=== PATIENT | male | born 1960 | race Caucasian/White ===

== ENCOUNTER 2016-12-04 13:25 | Emergency (ER) | payer OTHER ==
--- NOTE | 2016-12-04 13:45 | ED GI/GU/ABDOMINAL COMPLAINT ---
History of Present Illness General Chief Complaint: ETOH/Drug Related Complaint Stated Complaint: BIBA FOR ?OVER MEDICATION/OVERDOSE Source: patient, old records, EMS Exam Limitations: clinical condition, poor historian Vital Signs & Intake/Output Vital Signs & Intake/Output Vital Signs Date Time Temp Pulse Resp B/P B/P Pulse O2 O2 Flow FiO2 Mean Ox Delivery Rate 12/04 2000 97.1 76 16 134/80 98 Room Air Allergies Coded Allergies: No Known Allergies (12/04/16) Triage Note: PT BIBA FROM HOME AFTER WELLNESS CHECK. FOUND PT TO BE VERY TIRED IN ROOM. PT KEEPS FALLING ASLEEP DURING ASSESSMENT. PT DENIES TAKING ANYTHING. HAS A HX OF METHADONE USE. NSR ON CM. PT ALERT TO VERBAL STIMULI. MANUELA TAYLOR TO SARIAH. Triage Nurses Notes Reviewed? yes Onset: Abrupt Duration: day(s): (1), constant Timing: recent history Quality/Severity: mild Severity Numbers: 1 No Modifying Factors: none Associated Symptoms: DENIES HPI: The 56-year-old male brought in by ambulance for evaluation after he was found by his landlord to be lethargic. The history is limited secondary to patient condition at this time. He offers no complaints. Patient was found to be falling asleep frequently during her wellness check earlier today. He has a history of methadone use however denies any other drug use alcohol use. He has no chest pain abdominal pain or modifying factors or associated symptoms otherwise (LIZANDRO THOMPSON) Past History Travel History Traveled to [place] past 21 day No Medical History Any Pertinent Medical History? see below for history Gastrointestinal: liver disease Blood Disorders: thrombocytopenia Surgical History Surgical History: non-contributory Psychosocial History What is your primary language Albanian Tobacco Use: Cognitive Impairment Family History Hx Contributory? No (LIZANDRO THOMPSON) Review of Systems Review of Systems Constitutional: Reports: see HPI. All Other Systems: Reviewed and Negative Comments Review of systems: Limited secondary to patient condition (LIZANDRO THOMPSON) Physical Exam Physical Exam General Appearance: no apparent distress, lethargic Gastrointestinal: soft, non-tender Comments: Lethargic male arousable to verbal stimuli in no acute distress HEENT: Normal EENT exam; pupils are constricted responsive to light EOMI, HEAD is atraumatic. moist mucous membranes. Neck: Supple, normal range of motion Back: Nontender, no CVA tenderness. Full range of motion Cardiovascular: Regular rate and rhythms no murmurs rubs Respiratory: Chest nontender.There were no bony deformities, no asymmetry. No respiratory distress. Patient speaking in full complete sentences. Breath sounds clear to auscultation bilaterally: NO W/R/R Abdomen: Soft, nontender nondistended Extremity: No edema, full range of motion of extremities, 5 out of 5 strength noted to bilateral upper and lower extremities Neuro: Alert oriented x3, motor sensory normal,There were no obvious focal neurologic abnormalities. Skin: No appreciable rash on exposed skin, skin is warm and dry. Psych: Mood and affect is normal, memory and judgment is normal. Core Measures ACS in differential dx? No Severe Sepsis Present: No Septic Shock Present: No (LIZANDRO THOMPSON) Progress Differential Diagnosis: INTOXICATION ELECTROLYTE ABNORMALITY DEHYDRATION HYPOGLYCEMIA Plan of Care: Orders Procedure Date/time Status Restraint- Discontinue 12/04 2108 Active Laboratory Tests 12/04/16 2014: Urine Opiates Screen < 100.00, Methadone Screen > 735 H, Barbiturate Screen < 60, Ur Phencyclidine Scrn < 6.00, Amphetamines Screen < 100, U Benzodiazepines Scrn > 800 H, Urine Cocaine Screen < 50, Urine Cannabis Screen < 5.00 Labs ordered old records reviewed case discussed with Dr. Ash 12/04/2016 2:41:00 PM patient is more awake responsive PT states he has a history of thrombocytopenia secondary to chronic liver disease. Patient is attempting to elope when he fell on the room he is a risk to himself. Case was discussed with Dr. Ash evaluate the patient and agreed with plan patient was placed in restraints for his safety and staff safety 2109 patient is alert awake and oriented 3 he is able toward around the emergency room a steady gait vital signs are within normal limits discussed with him plan of care he is awake alert and responsive. I again discussed with the patient all his lab results and need for close follow-up regarding his thrombocytopenia he feels comfortable with discharge at this time his is coming to pick him up (LIZANDRO THOMPSON) Initial ED EKG: none (LIZANDRO THOMPSON) Departure Departure Time of Disposition: 2110 Disposition: HOME OR SELF CARE Condition: Stable Clinical Impression Primary Impression: Thrombocytopenia Secondary Impressions: Benzodiazepine abuse Departure Forms: Customer Survey General Discharge Information (LIZANDRO THOMPSON) PA/FLIGHT PURSER Co-Sign Statement Statement: ED Attending supervision documentation- [] I saw and evaluated the patient. I have also reviewed all the pertinent lab results and diagnostic results. I agree with the findings and the plan of care as documented in the PA's/FLIGHT PURSER's documentation. [X] I have reviewed the ED Record and agree with the PA's/FLIGHT PURSER's documentation. [] Additions or exceptions (if any) to the PAs/FLIGHT PURSER's note and plan are summarized below: [] (MILAN MATHEWS,RICCI) Disposition: HOME OR SELF CARE Condition: Stable Clinical Impression Primary Impression: Thrombocytopenia Secondary Impressions: Benzodiazepine abuse Departure Forms: Customer Survey General Discharge Information
[2016-12-04 14:17] LABS: ABSOLUTE BASOPHIL COUNT 0 /CUMM (0.0-0.2); ABSOLUTE EOSINOPHIL COUNT 0.1 /CUMM (0.0-0.7); ABSOLUTE LYMPH COUNT 0.9 /CUMM (1.2-3.4); ABSOLUTE MONOCYTE COUNT 0.3 /CUMM (0.10-0.60); MEAN CORPUSCULAR HGB 28.6 PG (27.0-31.0)
[2016-12-04 14:19] LABS: ABSOLUTE GRANULOCYTE CT 3.1 /CUMM (1.4-6.5); BASOPHIL % 0 % (0.0-2.0); EOSINOPHIL % 2.3 % (0-5); GRANULOCYTE % 69.4 % (42.2-75.2); HEMATOCRIT 35.5 % (42-52); MEAN CORPUSCULAR HGB CONC 33.7 G/DL (33.0-37.0); MEAN CORPUSCULAR VOLUME 84.8 FL (80.0-94.0); MEAN PLATELET VOLUME 10.5 FL (7.4-10.4); RBC DISTRIBUTION WIDTH 18.2 % (11.5-14.5); RED BLOOD CELL CT 4.18 /CUMM (4.70-6.10); WHITE BLOOD CELL COUNT 4.4 /CUMM (4.8-10.8)
[2016-12-04 14:36] LABS: PLATELET COUNT 49 /CUMM (130-400)
[2016-12-04 20:01] VITALS: BP 134/80
== END 2016-12-04 21:24 ==
LOC: ERH 13:25
PROVIDERS: Physician Assistant Medical
DX: D69.6 Thrombocytopenia, unspecified (principal); F13.10 Sedative, hypnotic or anxiolytic abuse, uncomplicated
CPT/HCPCS: 80307; G0480; J2310

== ENCOUNTER 2016-12-11 13:59 | Emergency (ER) | payer OTHER ==
[~2016-12-11] VITALS: Ht 175.3 cm; Wt 86.2 kg
--- NOTE | 2016-12-11 14:22 | ED GENERAL ADULT ---
History of Present Illness General Chief Complaint: ETOH/Drug Related Complaint Stated Complaint: BIBA FOR ?OD/UNRESPONSIVE Source: patient Exam Limitations: no limitations Vital Signs & Intake/Output Vital Signs & Intake/Output Vital Signs Date Time Temp Pulse Resp B/P B/P Pulse O2 O2 Flow FiO2 Mean Ox Delivery Rate 12/12 0613 80 20 126/71 96 Room Air 12/11 2204 97.1 71 20 125/80 96 Room Air 12/11 1921 73 20 113/83 98 Room Air 12/11 1727 80 20 125/85 98 Room Air 12/11 1406 100/70 12/11 1402 96.0 72 20 96 Room Air ED Intake and Output 12/12 0000 12/11 1200 Intake Total Output Total Balance Patient 190 lb Weight Weight Estimated Measurement Method Allergies Coded Allergies: No Known Allergies (12/04/16) Triage Note: PT BIBA FROM LOBBY OF HIS APARTMENT COMPLEX FOR AMS. PT WAS WANDERING AND CONFUSED. 911 ARRIVED, PT WAS RECLUCTANT TO COME TO ED FOR EVAL. PT ARRIVES, ALERT/LETHARGIC. PT NOTED WITH GREEN/WHITE POWDER/LIQUID ON TONGUE AND TEETH. PT ADMITS TO INGESTING DISSOLVEABLE DRUGS, WILL NOT SPECIFY. SECURITY AT BEDSIDE TO WAND. PT AWAKENS TO LOUD VERBAL STIMULI AND THEN FALLS BACK TO SLEEP. PLACED ON MONITOR. CHANGED INTO BLUE SCRUBS. AWAITING PROVIDER EVAL. VSS. Triage Nurses Notes Reviewed? yes Onset: Just prior to arrival Duration: constant Timing: recent history Injury Environment: home Severity: moderate HPI: Patient is a 56-year-old male with history of polysubstance abuse and thrombocytopenia presenting to the emergency Department chief complaint of confusion and ingestion of unknown substance. Per EMS patient was found wandering in the lobby of his apartment complex. Patient reports that he ingested some pills, will not report exactly what he took. Patient is confused, unable to report HPI. According to medical history patient has been seen and evaluated for similar symptoms in the past at this facility. Patient denying any pain. No shortness of breath. (CONOR ROY,ALEXEY) Past History Travel History Traveled to [place] past 21 day No Medical History Any Pertinent Medical History? see below for history Gastrointestinal: liver disease Blood Disorders: thrombocytopenia Surgical History Surgical History: non-contributory Psychosocial History What is your primary language Maltese Tobacco Use: UN ETOH Use: 6 6 Family History Hx Contributory? No (ALEXEY BRISENO) Review of Systems Review of Systems Constitutional: Reports: malaise. Comments Review of systems: See HPI, All other systems negative. Constitutional, no chills fever or weight loss HEENT: No visual changes no sore throat no congestion Cardiovascular: No chest pain ,palpitation , orthopnea or ankle swelling Skin, no jaundice no rashes Respiratory: No dyspnea cough sputum or hemoptysis GI: No nausea no vomiting : No dysuria No hematuria Muscle skeletal: no back pain, no neck pain, Neurologic: No numbness no confusion Psych: No stress anxiety or depression,. Heme/endocrine: No bruising no bleeding no polyuria or polydipsia Immunology: No splenectomy or history of AIDS (ALEXEY BRISENO) Physical Exam Physical Exam General Appearance: lethargic Comments: Well-developed well-nourished person in no acute distress HEENT: extraocular motion intact, no nystagmus. Pupils equally round and reactive to light and accommodation. Pupils approximately 4 mm bilaterally. Nose is atraumatic. External auditory canal and Tympanic membranes clear. Pharynx normal. No swelling or edema. Dry crusted white powder noted in mouth. Neck: Normal inspection Back: Nontender Cardiovascular: Regular rate and rhythms no murmurs rubs or gallops, normal JVP Respiratory: Chest nontender. No respiratory distress.slight wheezing to auscultation bilaterally at bases. Abdomen: Soft, nontender nondistended, no appreciable organomegaly. Normal bowel sounds. No ascites Extremity: No edema, Neuro: Lethargic, arousable to verbal stimuli and tactile stimuli. Oriented to person. Falls asleep, unable to follow cranial nerve exam. Skin: Dry scabbing lesions noted over the abdomen, upper extremities and lower extremity. No surrounding erythema. Psych intoxicated Core Measures ACS in differential dx? No CVA/TIA Diagnosis: No Severe Sepsis Present: No Septic Shock Present: No (ALEXEY BRISENO) Progress Differential Diagnoses I considered the following diagnoses in my evaluation of the patient: Polysubstance abuse, overdose, benzo overdose, EtOH abuse, depression, aspiration pneumonia Plan of Care: Orders Procedure Date/time Status Add-on Test (ER Only) 12/11 1855 Active Add-on Test (ER Only) 12/11 1617 Active ACETOMINOPHEN 12/11 1532 Complete SALICYLATE 12/11 1532 Complete ETHANOL 12/11 1532 Complete EKG 12/11 1432 Active URINE DRUG SCREEN FOR ER ONLY 12/11 141 Complete URINALYSIS 12/11 141 Complete COMPREHENSIVE METABOLIC PANEL 12/11 141 Complete CBC WITHOUT DIFFERENTIAL 12/11 141 Complete Laboratory Tests 12/11/16 1802: Urine Opiates Screen < 100.00, Methadone Screen > 735 H, Barbiturate Screen < 60, Ur Phencyclidine Scrn < 6.00, Amphetamines Screen < 100, U Benzodiazepines Scrn > 800 H, Urine Cocaine Screen < 50, Urine Cannabis Screen < 5.00, Urine Color YEL, Urine Clarity CLEAR, Urine pH 7.0, Ur Specific [place] 1.015, Urine Protein NEG, Urine Ketones TRACE H, Urine Nitrite NEG, Urine Bilirubin NEG, Urine Urobilinogen 4.0 H, Ur Leukocyte Esterase NEG, Ur Microscopic EXAM NOT REQUIRED, Urine Hemoglobin NEG, Urine Glucose NEG 12/11/16 1532: Anion Gap 5, Estimated GFR > 60, BUN/Creatinine Ratio 22.9, Glucose 63 L, Calcium 8.4, Total Bilirubin 2.3 H, AST 43, ALT 42, Alkaline Phosphatase 80, Total Protein 6.1 L, Albumin 2.8 L, Globulin 3.3, Albumin/Globulin Ratio 0.8 L, Salicylates < 1.0, Acetaminophen < 10.0 L, Serum Alcohol < 10.0 12/11/16 1440: CBC w Diff NO MAN DIFF REQ, RBC 4.32 L, MCV 85.3, MCH 28.5, RDW 18.7 H, MPV 11.2 H, Gran % 67.6, Lymphocytes % 22.9, Monocytes % 6.8, Eosinophils % 1.9, Basophils % 0.8, Absolute Granulocytes 3.0, Absolute Lymphocytes 1.0 L, Absolute Monocytes 0.3, Absolute Eosinophils 0.1, Absolute Basophils 0, PUBS MCHC 33.4 Diagnostic Imaging: Viewed by Me: Radiology Read. Discussed w/RAD: Radiology Read. Initial ED EKG: SINUS RHYTHM 70 BPM, BORDERLINE PROLONGED qt INTERVAL Hand-Off Endorsed To: ISAIAS LOPEZ Endorsed Time: 1999 Pending: other Comments: ON ARRIVAL PATIENT APPEARS INTOXICATED, INCOHERENT, AROUSABLE TO VERBAL AND TACTILE STIMULI BUT THEN FALLS BACK ASLEEP. wE WILL CONTINUE MONITOR THE PATIENT on the electrical journeyman. Patient did have Xanax tabs in his pocket, appears to be similar colored to what was crushed in his mouth. Patient currently denying any suicidal or homicidal ideation. 12/11/2016 5:54:41 PMPatient will be continued to be monitored until clinically sober. Patient signed out to MANUELA Chowdary. (ALEXEY BRISENO) Differential Diagnoses I considered the following diagnoses in my evaluation of the patient: (EDGARD MATHEWS,PEDRO Rodríguez) Comments: Patient is still clinically intoxicated and is signout to Dr. King pending reevaluation. When patient becomes clinically sober and alert and oriented he can go home. (ISAIAS LOPEZ) Departure Departure Disposition: HOME OR SELF CARE Condition: Stable Clinical Impression Primary Impression: Polysubstance abuse Referrals: UNKNOWN (PCP/Family) Additional Instructions: Follow-up with your primary care physician. Takes only prescribed medications as prescribed. Return for worsening symptoms or concerns. Departure Forms: Customer Survey General Discharge Information (ALEXEY BRISENO) Departure Comments 12/12/16, 5:29am.... pt resting comfortably, easily aroused. Pt denies Si/HI/ Hallucinations. He does not wish to speak to crises team, "I speak to a counselor all the time." He is safe and stable for discharge. PA/INTERNET DESIGNER Co-Sign Statement Statement: ED Attending supervision documentation- [x] I saw and evaluated the patient. I have also reviewed all the pertinent lab results and diagnostic results. I agree with the findings and the plan of care as documented in the PA's/INTERNET DESIGNER's documentation. 12/12/16, 5:46am... pt denies SI/HI/Hallucinations. He does not wish to speak to crises and has follow up with his own counselor. He is safe and stable for discharge. [] I have reviewed the ED Record and agree with the PA's/INTERNET DESIGNER's documentation. [] Additions or exceptions (if any) to the PAs/INTERNET DESIGNER's note and plan are summarized below: [] (EDGARD MATHEWS,PEDRO Rodríguez) Critical Care Note Critical Care Note Critical Care Time: non-applicable (ALEXEY BRISENO)
[2016-12-11 14:50] LABS: ABSOLUTE BASOPHIL COUNT 0 /CUMM (0.0-0.2); ABSOLUTE EOSINOPHIL COUNT 0.1 /CUMM (0.0-0.7); ABSOLUTE MONOCYTE COUNT 0.3 /CUMM (0.10-0.60); BASOPHIL % 0.8 % (0.0-2.0); EOSINOPHIL % 1.9 % (0-5); GRANULOCYTE % 67.6 % (42.2-75.2); HEMATOCRIT 36.8 % (42-52); MEAN CORPUSCULAR HGB 28.5 PG (27.0-31.0); MEAN CORPUSCULAR HGB CONC 33.4 G/DL (33.0-37.0); MEAN CORPUSCULAR VOLUME 85.3 FL (80.0-94.0); MEAN PLATELET VOLUME 11.2 FL (7.4-10.4); RBC DISTRIBUTION WIDTH 18.7 % (11.5-14.5); RED BLOOD CELL CT 4.32 /CUMM (4.70-6.10); WHITE BLOOD CELL COUNT 4.5 /CUMM (4.8-10.8)
[2016-12-11 15:12] LABS: PLATELET COUNT 58 /CUMM (130-400)
--- NOTE | 2016-12-11 19:50 | RADIOLOGY REPORT ---
EXAMINATION: XR PORTABLE CHEST CLINICAL INFORMATION: Drug overdose. Rule out aspiration. COMPARISON: None TECHNIQUE: Portable frontal view of the chest was obtained. FINDINGS: The cardiomediastinal silhouette is within normal limits for technique. The lungs are normally and symmetrically expanded. No focal consolidation, changes of congestion or pleural effusions. No pneumothorax. No acute osseous abnormality. IMPRESSION: No acute pulmonary process. The lungs essentially appear clear.
[2016-12-12 06:13] VITALS: BP 126/71
== END 2016-12-12 06:14 ==
LOC: ERH 13:59
PROVIDERS: Physician Assistant
DX: F19.10 Other psychoactive substance abuse, uncomplicated (principal)
CPT/HCPCS: 80307; 81003; 93005; 93010; G0480

== ENCOUNTER 2016-12-26 12:44 | Emergency (ER) | payer OTHER ==
--- NOTE | 2016-12-26 12:50 | ED GENERAL ADULT ---
History of Present Illness General Chief Complaint: General Adult Stated Complaint: BIBA FOR ?ETOH, LETHARGY Source: patient, old records, EMS Exam Limitations: unable to give history, not alert/orientated Vital Signs & Intake/Output Vital Signs & Intake/Output Vital Signs Date Time Temp Pulse Resp B/P B/P Pulse O2 O2 Flow FiO2 Mean Ox Delivery Rate 12/26 1846 74 16 115/77 100 Nasal 2.0L Cannula 12/26 1555 57 16 136/89 100 Nasal 2.0L Cannula 12/26 1405 97.1 60 18 125/80 97 Room Air 12/26 1258 95 Room Air 12/26 1245 97.8 69 16 108/60 95 Room Air Allergies Coded Allergies: No Known Allergies (12/04/16) Triage Nurses Notes Reviewed? yes Unable To Obtain Hx Due To: patient intoxication Onset: Abrupt Duration: hour(s): (1), continues in ED Timing: recent history Injury Environment: street No Modifying Factors: none HPI: 56-year-old male with history of opioid abuse brought in by ambulance after being found stumbling and lethargic in a parking lot. he has been seen previously for opioid overdoses that required Narcan. Patient is currently very lethargic and disoriented. He is not able to answer many questions due to intoxication. He denies being in any pain, suicidal ideation, homicidal ideation, shortness of breath, fever, abdominal pain, nausea, vomiting or any other associated symptoms. Patient has been seen here on multiple other occasions for similar symptoms. (ISAIAS SANFORD PA-C) Past History Travel History Traveled to [place] past 21 day No Medical History Any Pertinent Medical History? see below for history Gastrointestinal: liver disease Blood Disorders: thrombocytopenia Surgical History Surgical History: non-contributory Psychosocial History What is your primary language Sudanese Family History Hx Contributory? Yes (ISAIAS SANFORD PA-C) Review of Systems Review of Systems Constitutional: Reports: no symptoms. EENTM: Reports: no symptoms. Respiratory: Reports: no symptoms. Cardiovascular: Reports: no symptoms. GI: Reports: no symptoms. Genitourinary: Reports: no symptoms. Musculoskeletal: Reports: no symptoms. Skin: Reports: no symptoms. Neurological/Psychological: Reports: no symptoms. Hematologic/Endocrine: Reports: no symptoms. Immunologic/Allergic: Reports: no symptoms. All Other Systems: Reviewed and Negative (LUIS SANFORD PA-CIC) Physical Exam Physical Exam General Appearance: well developed/nourished, no apparent distress, lethargic Head: atraumatic, normal appearance Eyes: Bilateral: normal appearance, PERRL, EOMI. Ears, Nose, Throat: normal pharynx, normal ENT inspection, hearing grossly normal Neck: normal inspection, supple, full range of motion Respiratory: normal breath sounds, chest non-tender, no respiratory distress, lungs clear Cardiovascular: regular rate/rhythm, normal peripheral pulses Peripheral Pulses: 2+ radial (R), 2+ radial (L), 2+ dorsalis pedis (R), 2+ dorsalis pedis (L) Gastrointestinal: normal bowel sounds, soft, non-tender, no organomegaly Back: normal inspection, normal range of motion, no vertebral tenderness Extremities: normal inspection, normal capillary refill, normal range of motion, no edema Core Measures ACS in differential dx? No CVA/TIA Diagnosis: Yes Severe Sepsis Present: No Septic Shock Present: No (ISAIAS SANFORD PA-C) Progress Differential Diagnoses I considered the following diagnoses in my evaluation of the patient: [Drug intoxication, metabolic disturbance, alcohol intoxication, stroke, hypoglycemia, sepsis] Plan of Care: Orders Procedure Date/time Status ARTERIAL BLOOD GAS (GEN) 12/26 1502 Active Continuous Observation Monitor 12/26 1345 Active URINE DRUGS OF ABUSE 12/26 1253 Complete ETHANOL 12/26 1253 Complete COMPREHENSIVE METABOLIC PANEL 12/26 1253 Complete CBC WITHOUT DIFFERENTIAL 12/26 1253 Complete Laboratory Tests 12/26/16 1540: pH 7.35, pCO2 45, pO2 106 H, HCO3 24, ABG O2 Sat (Measured) 98.0, Carboxyhemoglobin 0.6 L, O2 Concentration % 2L, O2 Delivery Method NC, Phlebotomy Draw Site LEFT RADIAL 12/26/16 1330: Urine Opiates Screen 167.00, Methadone Screen > 735 H, Barbiturate Screen < 60, Ur Phencyclidine Scrn < 6.00, Amphetamines Screen < 100, U Benzodiazepines Scrn > 800 H, Urine Cocaine Screen < 50, Urine Cannabis Screen < 5.00 12/26/16 1253: Anion Gap 8, Estimated GFR > 60, BUN/Creatinine Ratio 25.0, Glucose 72, Calcium 8.5, Total Bilirubin 2.9 H, AST 49, ALT 38, Alkaline Phosphatase 87, Total Protein 7.2, Albumin 3.7, Globulin 3.5, Albumin/Globulin Ratio 1.1, CBC w Diff NO MAN DIFF REQ, RBC 4.33 L, MCV 87.6, MCH 29.3, RDW 19.0 H, MPV 11.2 H, Gran % 77.2 H, Lymphocytes % 14.3 L, Monocytes % 6.9, Eosinophils % 1.3, Basophils % 0.3, Absolute Granulocytes 7.2 H, Absolute Lymphocytes 1.3, Absolute Monocytes 0.6, Absolute Eosinophils 0.1, Absolute Basophils 0, PUBS MCHC 33.4, Serum Alcohol < 10.0 Patient was monitored on telemetry basic blood work and tox screen will be drawn. We will hold off on Narcan for now as patient is breathing normally and he has a history of becoming very irritated after receiving Narcan. He is moving all of his extremities and is responsive to loud verbal stimuli. Arterial blood blood gas does not show the patient is retaining any CO2. Tox screen is positive for large numbers of benzos methadone and opiates. he remains very lethargic. His vital signs are stable. Blood work is unchanged from previous and is in within normal limits. He is arousable to loud verbal stimuli. 10:01 PM: Patient is starting to wake up after being sedated most the day. He denies any homicidal ideation, suicidal ideation. He does not want to speak with crisis. The patient will be discharged home when he is able to have a sober person come pick him up. 10:40 PM patient is falling back to sleep and waking up asking to go home. He has not been able to find a ride and is not yet sober enough to go home on his own. Patient will continue to be monitored in the emergency department until he is able to find a ride home or he is clinically sober. he will be signed out to Dr. Jackson. (ISAIAS SANFORD PA-C) Initial ED EKG: none Hand-Off Endorsed To: NAILA MATHEWS,RASHIDA Clemente Endorsed Time: 2250 Pending: other (sobriety, ride home) (ISAIAS SANFORD PA-C) Departure Departure Disposition: STILL A PATIENT Condition: Stable Clinical Impression Primary Impression: Intoxication by drug Qualifiers: Complication of substance-induced condition: uncomplicated Qualified Code: F19.920 - Other psychoactive substance use, unspecified with intoxication, uncomplicated Referrals: UNKNOWN (PCP/Family) Departure Forms: Customer Survey General Discharge Information (ISAIAS SANFORD PA-C) PA/DIRECTOR OF CLINICAL EDUCATION Co-Sign Statement Statement: ED Attending supervision documentation- [X] I saw and evaluated the patient. I have also reviewed all the pertinent lab results and diagnostic results. I agree with the findings and the plan of care as documented in the PA's/DIRECTOR OF CLINICAL EDUCATION's documentation. [X] I have reviewed the ED Record and agree with the PA's/DIRECTOR OF CLINICAL EDUCATION's documentation. [] Additions or exceptions (if any) to the PAs/DIRECTOR OF CLINICAL EDUCATION's note and plan are summarized below: [] (MILAN MATHEWS,RICCI) Critical Care Note Critical Care Note Critical Care Time: non-applicable (ISAIAS SANFORD PA-C)
[2016-12-26 13:06] LABS: ABSOLUTE BASOPHIL COUNT 0 /CUMM (0.0-0.2); ABSOLUTE EOSINOPHIL COUNT 0.1 /CUMM (0.0-0.7); ABSOLUTE GRANULOCYTE CT 7.2 /CUMM (1.4-6.5); ABSOLUTE LYMPH COUNT 1.3 /CUMM (1.2-3.4); ABSOLUTE MONOCYTE COUNT 0.6 /CUMM (0.10-0.60); BASOPHIL % 0.3 % (0.0-2.0); EOSINOPHIL % 1.3 % (0-5); GRANULOCYTE % 77.2 % (42.2-75.2); MEAN CORPUSCULAR HGB 29.3 PG (27.0-31.0); MEAN CORPUSCULAR HGB CONC 33.4 G/DL (33.0-37.0); MEAN CORPUSCULAR VOLUME 87.6 FL (80.0-94.0); MEAN PLATELET VOLUME 11.2 FL (7.4-10.4); PLATELET COUNT 75 /CUMM (130-400); RED BLOOD CELL CT 4.33 /CUMM (4.70-6.10); WHITE BLOOD CELL COUNT 9.3 /CUMM (4.8-10.8)
[2016-12-27 06:03] VITALS: BP 128/76
== END 2016-12-27 06:15 ==
LOC: ERH 12:44
PROVIDERS: Physician Assistant Medical
DX: F11.129 Opioid abuse with intoxication, unspecified (principal); F13.129 Sedative, hypnotic or anxiolytic abuse with intoxication, unspecified
CPT/HCPCS: 80307; G0480; J1200; J1630